=== PATIENT | female | born 1955 | race Caucasian/White ===

== ENCOUNTER 2018-01-21 19:40 | Emergency (ER) | payer BC ==
[~2018-01-21] VITALS: Ht 162.6 cm; Wt 113.4 kg
[~2018-01-21 19:40] MED LIST: Mobic15 MG PO; Naltrexone HCl50 MG PO; Norco 5-325 Ta1 EACH PO; OMEPRAZOLE CAP 20M; ZESTORETIC 20-251 EA PO
[2018-01-21 20:26] LABS: BASOPHILS ABSOLUTE AUTO 0.04 K/mm3 (0.00-0.23); BASOPHILS PERCENT AUTO 0 % (0-2); EOSINOPHILS ABSOLUTE AUTO 0.23 K/mm3 (0.00-0.68); EOSINOPHILS PERCENT AUTO 3 % (0-6); Hematocrit 39.5 % (33.0-51.0); Hemoglobin 12.7 g/dL (11.5-16.0); IMMATURE GRAN ABSOLUTE AUTO 0.02 K/mm3 (0.00-0.10); IMMATURE GRAN PERCENT AUTO 0 % (0-1); LYMPHOCYTES ABSOLUTE AUTO 1.37 K/mm3 (0.84-5.20); LYMPHOCYTES PERCENT AUTO 15 % (21-46); MONOCYTES ABSOLUTE AUTO 0.72 K/mm3 (0.16-1.47); MONOCYTES PERCENT AUTO 8 % (4-13); Mean Corpuscular HGB 30.6 pg (26.0-34.0); Mean Corpuscular HGB Conc 32.2 g/dL (31.5-36.5); Mean Corpuscular Volume 95 fL (80-100); Mean Platelet Volume 9.6 fL (9.1-12.4); NEUTROPHILS ABSOLUTE AUTO 6.76 K/mm3 (1.96-9.15); NEUTROPHILS PERCENT AUTO 74 % (41-73); Platelet Count 289 K/mm3 (150-400); RDW Coefficient Variation 12.9 % (11.7-14.2); RDW Standard Deviation 45.1 fL (35.1-46.3); Red Blood Cell Count 4.15 M/mm3 (3.80-5.20); White Blood Cell Count 9.14 K/mm3 (4.00-11.30)
[2018-01-21 20:47] LABS: Alanine Aminotransfer (ALT/SGP 27 U/L (12-78); Albumin, Blood 3.5 g/dL (3.4-5.0); Alk Phos 80 U/L (50-136); Anion Gap 8 mmol/L (6-16); Aspartate Aminotrans (AST/SGOT 16 U/L (12-37); Bilirubin, Total 0.2 mg/dL (0.1-1.0); Blood Urea Nitrogen 23 mg/dL (8-24); Bun/Creatinine Ratio 26.7 (12.0-20.0); CO2, Blood 28 mmol/L (21-32); Calcium, Blood 8.4 mg/dL (8.5-10.1); Chloride, Blood 105 mmol/L (98-108); Creatinine, Blood 0.86 mg/dL (0.40-1.00); Globulin, Blood 3.5 g/dL (2.2-4.0); Glomerular Filtration Rate >60 (60-); Glucose, Blood 117 mg/dL (70-99); Potassium, Blood 3.8 mmol/L (3.5-5.5); Sodium, Blood 141 mmol/L (136-145); Troponin I <0.015 ng/mL (0.000-0.040)
[2018-01-21] MEDS ORDERED: Zofran4 MG PO (21:41)
[2018-01-21] MEDS ORDERED: KETO10 PO (21:41)
[2018-01-21] MEDS ORDERED: Cyclobenzaprine5 MG PO (21:41)
== END 2018-01-21 22:10 | disposition home or self-care (01) ==
LOC: ER 19:40
PROVIDERS: Physician Assistant
DX: S29.012A Strain of muscle and tendon of back wall of thorax, initial encounter (principal); K80.20 Calculus of gallbladder without cholecystitis without obstruction; I10 Essential (primary) hypertension; Z87.891 Personal history of nicotine dependence; Z79.899 Other long term (current) drug therapy; X50.0XXA Overexertion from strenuous movement or load, initial encounter
CPT/HCPCS: 36415; 76705; 80053; 83690; 84484; 85025; 93005; 93010; 96374; 96375; 99284-25; J1170; J2405

== ENCOUNTER 2019-02-28 11:53 | Day surgery (SDC) | payer BC, OTHER ==
[~2019-02-28] VITALS: Ht 162.6 cm; Wt 109.2 kg
[~2019-02-28 11:53] MED LIST changes: +ALBU90OI6 INH; +ASPI81CH PO; +AZO CRANBERRY250 MG PO; +CELE100 PO; +CETI5 PO; +CINNAMON PO; +Cyclobenzaprine5 MG PO; +Flonase 0.05% N16 GM; +GINGER ROOT1 GM PO; +HYDCHL25 PO; +Hair, Skin & N1 EACH PO; +KETO10 PO; +LISI20 PO; +MELO7.5 PO; +Omega 3 1,0001 EACH PO; +Omeprazole20 M1 PO; +TURMERIC500 M2 PO; +Zofran4 MG PO; +[UNRECOGNIZED DRUG - OTHER] PO; +[UNRECOGNIZED DRUG - OTHER] PO
--- NOTE | 2019-02-28 12:29 | NUR ---
History, Chart, Medications and Allergies reviewed before start of procedure. Patient confirms NPO status and agrees with scheduled surgery. Lungs clear T/O to Auscultation. Patient reports completing Chlorhexadine shower X2 prior to admission to hospital. Pre-Op teaching done. Pt verbalizes understanding. NO JEWELRY, CONTACTS, DENTURES AT ADMIT. GLASSES WILL GO TO PACU.
--- NOTE | 2019-02-28 13:04 | NUR ---
PATIENT UP FOR UNMEASURED VOID
--- NOTE | 2019-02-28 13:04 | NUR ---
SPINDLE TESTER REPORT COMPLETED AT BEDSIDE WITH Farhana RUIZ RN.
--- NOTE | 2019-02-28 17:44 | NUR ---
SUMMARY DENIES ANY PAIN, ABLE TO MOVE FEET MORE, REPORTS HAVING MORE SENSATION ON BLE'S, EATING DINNER, TOLERATING WELL, DSG C/D/I, NO ACUTE CHANGES THIS SHIFT.
[2019-03-01 04:00] LABS: BASOPHILS ABSOLUTE AUTO 0.01 K/mm3 (0.00-0.23); BASOPHILS PERCENT AUTO 0 % (0-2); EOSINOPHILS PERCENT AUTO 0 % (0-6); Hematocrit 35.4 % (33.0-51.0); Hemoglobin 11.6 g/dL (11.5-16.0); IMMATURE GRAN ABSOLUTE AUTO 0.01 K/mm3 (0.00-0.10); IMMATURE GRAN PERCENT AUTO 0 % (0-1); LYMPHOCYTES ABSOLUTE AUTO 0.58 K/mm3 (0.84-5.20); LYMPHOCYTES PERCENT AUTO 6 % (21-46); MONOCYTES ABSOLUTE AUTO 0.62 K/mm3 (0.16-1.47); MONOCYTES PERCENT AUTO 7 % (4-13); Mean Corpuscular HGB 30.9 pg (26.0-34.0); Mean Corpuscular HGB Conc 32.8 g/dL (31.5-36.5); Mean Corpuscular Volume 94 fL (80-100); NEUTROPHILS ABSOLUTE AUTO 8.07 K/mm3 (1.96-9.15); NEUTROPHILS PERCENT AUTO 87 % (41-73); Platelet Count 220 K/mm3 (150-400); RDW Coefficient Variation 12.9 % (11.7-14.2); RDW Standard Deviation 44.2 fL (35.1-46.3); Red Blood Cell Count 3.76 M/mm3 (3.80-5.20); White Blood Cell Count 9.29 K/mm3 (4.00-11.30)
[2019-03-01 04:22] LABS: Anion Gap 7 mmol/L (6-16); Blood Urea Nitrogen 14 mg/dL (8-24); Bun/Creatinine Ratio 18.4 (12.0-20.0); CO2, Blood 25 mmol/L (21-32); Calcium, Blood 8.5 mg/dL (8.5-10.1); Chloride, Blood 108 mmol/L (98-108); Creatinine, Blood 0.76 mg/dL (0.40-1.00); Glomerular Filtration Rate >60 (60-); Glucose, Blood 111 mg/dL (70-99); Magnesium, Blood 1.9 mg/dL (1.6-2.4); Potassium, Blood 4.3 mmol/L (3.5-5.5); Sodium, Blood 140 mmol/L (136-145)
--- NOTE | 2019-03-01 07:21 | NUR ---
SUMMARY PT TOLERATING PO. VOIDING. PAIN REPORTED WELL CONTROLLED. CSM INTACT TO EXT.
[2019-03-01] MEDS ORDERED: HYDR1TAB94 PO (08:53)
[2019-03-01] MEDS ORDERED: ASPI81CH PO (08:53)
--- NOTE | 2019-03-01 10:42 | NUR ---
03/01/19 1042 Yaneth Arzola VERIFICATIONS: EDIT CHART.
--- NOTE | 2019-03-01 14:25 | NUR ---
DISCHARGE: PACKET PRINTED AND PT EDUCATED. ALSO IN ROOM WHEN PT EDUCATED. PT SENT WITH SCRIPT FOR NARCO AND AQUACEL DRESSINGS. PT VERBALIZED UNDERSTANDING, LEFT UNIT WITH MARTELL DAVIES VIA WHEELCHAIR.
== END 2019-03-01 14:20 | disposition home or self-care (01) ==
LOC: ORSCMMR 11:53 → ORD 13:30 → SURS 16:29 → ORSCMMR 03-01 14:20
PROVIDERS: Orthopaedic Surgery
PROC: 0SRD0J9 Replacement of Left Knee Joint with Synthetic Substitute, Cemented, Open Approach (ICD-10-PCS; principal; 2019-02-28 13:30)
DX: M17.12 Unilateral primary osteoarthritis, left knee (principal); I10 Essential (primary) hypertension; J45.909 Unspecified asthma, uncomplicated; E66.01 Morbid (severe) obesity due to excess calories; Z68.41 Body mass index [BMI] 40.0-44.9, adult; K21.9 Gastro-esophageal reflux disease without esophagitis; Z79.899 Other long term (current) drug therapy
CPT/HCPCS: 36415; 73560-LT; 80048; 83735; 85025; 88300; 97110; 97116; 97162; C1713; C1776; J0171; J0690; J0735; J1100; J1885; J2250; J2370; J2405; J2704; J2795; J3010; J7120

== ENCOUNTER 2019-10-08 16:39 | Emergency (ER) | payer BC, MEDICARE ==
[~2019-10-08] VITALS: Ht 157.5 cm; Wt 124.7 kg
[~2019-10-08 16:39] MED LIST changes: +HYDR1TAB94 PO
[2019-10-08] MEDS ORDERED: Norco 5-325 Ta1 EACH PO ×3 (17:59→18:24)
== END 2019-10-08 18:50 | disposition home or self-care (01) ==
LOC: ER 16:39
DX: S93.401A Sprain of unspecified ligament of right ankle, initial encounter (principal); S80.02XA Contusion of left knee, initial encounter; Z88.0 Allergy status to penicillin; Z88.2 Allergy status to sulfonamides; Z88.1 Allergy status to other antibiotic agents; Z79.82 Long term (current) use of aspirin; Z79.899 Other long term (current) drug therapy; I10 Essential (primary) hypertension; Z87.81 Personal history of (healed) traumatic fracture; Z87.891 Personal history of nicotine dependence; W18.30XA Fall on same level, unspecified, initial encounter
CPT/HCPCS: 73562-LT; 73590; 73610; 99283-25; A9270-GY

== ENCOUNTER 2019-12-28 09:08 | Day surgery (SDC) | payer MEDICARE, BC ==
[~2019-12-28] VITALS: Ht 162.6 cm; Wt 118.3 kg
[~2019-12-28 09:08] MED LIST changes: +CELE200; +FLUT.05NI; +PREG25; +ZYRTEC10 M2
--- NOTE | 2019-12-28 12:54 | NUR ---
12/28/19 1254 Radha Aviles PT. VERBALIZES ABD. FEELS LIKE SHE HAS EATEN POT STICKERS WITH CABBAGE IN THEM. PT. VERBALIZES FEELS LIKE BLOATING. PT. INSTRUCTED THAT EVENTUALLY THE AIR WILL ABSORB OR JUST PASS OUT AIR IF FELT THE NEED.
== END 2019-12-28 12:33 | disposition home or self-care (01) ==
LOC: ORSCSDS 09:08
PROVIDERS: Internal Medicine Gastroenterology
PROC: 0DBN8ZX Excision of Sigmoid Colon, Via Natural or Artificial Opening Endoscopic, Diagnostic (ICD-10-PCS; principal; 2019-12-28 11:15)
DX: Z12.11 Encounter for screening for malignant neoplasm of colon (principal); Z86.010 Personal history of colon polyps; K63.5 Polyp of colon; K64.8 Other hemorrhoids; K57.30 Diverticulosis of large intestine without perforation or abscess without bleeding; I10 Essential (primary) hypertension; Z79.899 Other long term (current) drug therapy; E66.01 Morbid (severe) obesity due to excess calories; Z68.41 Body mass index [BMI] 40.0-44.9, adult
CPT/HCPCS: J2704; J7120

== ENCOUNTER 2022-08-23 14:33 | Emergency (ER) | payer MEDICARE, BC ==
[~2022-08-23] VITALS: Ht 162.6 cm; Wt 117.9 kg
[2022-08-23 15:00] LABS: BASOPHILS ABSOLUTE AUTO 0.03 K/mm3 (0.00-0.23); BASOPHILS PERCENT AUTO 1 % (0-2); EOSINOPHILS ABSOLUTE AUTO 0.11 K/mm3 (0.00-0.68); EOSINOPHILS PERCENT AUTO 2 % (0-6); Hematocrit 37.8 % (33.0-51.0); Hemoglobin 12.6 g/dL (11.5-16.0); IMMATURE GRAN ABSOLUTE AUTO 0.03 K/mm3 (0.00-0.10); IMMATURE GRAN PERCENT AUTO 1 % (0-1); LYMPHOCYTES ABSOLUTE AUTO 0.88 K/mm3 (0.84-5.20); LYMPHOCYTES PERCENT AUTO 19 % (21-46); MONOCYTES ABSOLUTE AUTO 0.42 K/mm3 (0.16-1.47); MONOCYTES PERCENT AUTO 9 % (4-13); Mean Corpuscular HGB 30.4 pg (26.0-34.0); Mean Corpuscular HGB Conc 33.3 g/dL (31.5-36.5); Mean Corpuscular Volume 91 fL (80-100); Mean Platelet Volume 9.4 fL (9.1-12.4); NEUTROPHILS ABSOLUTE AUTO 3.27 K/mm3 (1.96-9.15); NEUTROPHILS PERCENT AUTO 69 % (41-73); Platelet Count 259 K/mm3 (150-400); RDW Coefficient Variation 13.2 % (11.7-14.2); RDW Standard Deviation 43.4 fL (35.1-46.3); Red Blood Cell Count 4.14 M/mm3 (3.80-5.20); White Blood Cell Count 4.74 K/mm3 (4.00-11.30)
[2022-08-23 15:18] LABS: Source, Urine Clean Catch
[2022-08-23 15:22] LABS: Albumin, Blood 3.5 g/dL (3.4-5.0); Bilirubin, Total 0.4 mg/dL (0.1-1.0); Bun/Creatinine Ratio 18.3 (12.0-20.0); Calcium, Blood 9.1 mg/dL (8.5-10.1); Creatinine, Blood 0.77 mg/dL (0.40-1.00); Globulin, Blood 3.4 g/dL (2.2-4.0); Potassium, Blood 3.9 mmol/L (3.5-5.5); Total Protein, Blood 6.9 g/dL (6.4-8.2)
[2022-08-23 15:25] LABS: Appearance, Urine Clear (Clear); Bilirubin, Urine Neg (Neg); Blood, Urine Neg (Neg); Color, Urine Yellow (P-Yellow); Glucose Qualitative, Urine Neg (Neg); Ketones, Urine Neg (Neg); Leukocyte Esterase, Urine 1+ (Neg); Nitrite, Urine Neg (Neg); Protein, Urine Neg (Neg); Urobilinogen, Urine NORM (Normal)
[2022-08-23 15:43] LABS: Bacteria Mod /hpf; Red Blood Cells, Urine 0-2 /hpf (0-2); Squamous Epithelial Cells Rare /hpf (Few)
[2022-08-23] MEDS ORDERED: LOSARTAN POTAS100 M1 PO (16:45)
[2022-08-23] MEDS ORDERED: OMEPRAZOL RX 20MG CA PO (16:45)
[2022-08-23] MEDS ORDERED: ZESTRIL40 M1 PO (16:46)
[2022-08-23] MEDS ORDERED: BUTALB-ACETAMI1 EAC5 PO (16:46)
[2022-08-23] MEDS ORDERED: CYCL10 PO (16:46)
[2022-08-23] MEDS ORDERED: BISA5EC PO (17:02)
[2022-08-23] MEDS ORDERED: MIRALAX17 GM PO (17:02)
[2022-08-23 17:08] VITALS: BP 169/94
== END 2022-08-23 17:23 | disposition home or self-care (01) ==
LOC: ER 14:33
PROVIDERS: Emergency Medicine
DX: K59.00 Constipation, unspecified (principal); I10 Essential (primary) hypertension; Z88.0 Allergy status to penicillin; Z88.2 Allergy status to sulfonamides; Z88.1 Allergy status to other antibiotic agents; Z87.891 Personal history of nicotine dependence
CPT/HCPCS: 36415; 74177; 80053; 81001; 83690; 85025; 87086; 99284-25; A9270; Q9967

== ENCOUNTER → 2022-09-02 | Outpatient (CLI) | payer MEDICARE, BC ==
[~2022-09-02] MED LIST changes: +BISA5EC PO; +BUTALB-ACETAMI1 EAC5 PO; +CYCL10 PO; +LOSARTAN POTAS100 M1 PO; +MIRALAX17 GM PO; +OMEPRAZOL RX 20MG CA PO; +ZESTRIL40 M1 PO
== END | disposition home or self-care (01) ==
LOC: LAB 17:00 → LAB SHORT 17:00
DX: R30.0 Dysuria (principal)
CPT/HCPCS: 87077; 87086; 87186

== ENCOUNTER → 2022-12-25 | Outpatient (CLI) | payer MEDICARE, BC ==
[2022-12-25 13:57] LABS: Stool Occult Bld Immuno 1 Negative (NEGATIVE)
== END | disposition home or self-care (01) ==
LOC: LAB SHORT 08:25 → LAB 08:25
PROVIDERS: Physician Assistant
DX: Z12.11 Encounter for screening for malignant neoplasm of colon (principal)
CPT/HCPCS: G0328

== ENCOUNTER 2023-05-28 09:54 | Inpatient (IN) | payer MEDICARE, BC ==
[2023-05-28] VITALS (21 sets, daily range): BP systolic 116–168; BP diastolic 70–91
[~2023-05-28] VITALS: Ht 162.6 cm; Wt 94.7 kg
[2023-05-28 11:55] LABS: Source, Urine Straight Cath
[2023-05-28 12:02] LABS: Base Excess Venous 3.8 mmol/L; Bicarbonate Venous 26.6 mmol/L (24.0-30.0); pH Blood Venous 7.36 (7.34-7.37)
[2023-05-28 12:25] LABS: BASOPHILS ABSOLUTE AUTO 0.03 K/mm3 (0.00-0.23); BASOPHILS PERCENT AUTO 0 % (0-2); EOSINOPHILS ABSOLUTE AUTO 0.03 K/mm3 (0.00-0.68); EOSINOPHILS PERCENT AUTO 0 % (0-6); Hematocrit 45.3 % (33.0-51.0); Hemoglobin 15.2 g/dL (11.5-16.0); IMMATURE GRAN ABSOLUTE AUTO 0.08 K/mm3 (0.00-0.10); IMMATURE GRAN PERCENT AUTO 1 % (0-1); LYMPHOCYTES ABSOLUTE AUTO 1.05 K/mm3 (0.84-5.20); LYMPHOCYTES PERCENT AUTO 12 % (21-46); MONOCYTES ABSOLUTE AUTO 0.59 K/mm3 (0.16-1.47); MONOCYTES PERCENT AUTO 7 % (4-13); Mean Corpuscular HGB 30.1 pg (26.0-34.0); Mean Corpuscular HGB Conc 33.6 g/dL (31.5-36.5); Mean Corpuscular Volume 90 fL (80-100); Mean Platelet Volume 9.6 fL (9.1-12.4); NEUTROPHILS ABSOLUTE AUTO 7.35 K/mm3 (1.96-9.15); NEUTROPHILS PERCENT AUTO 81 % (41-73); Platelet Count 539 K/mm3 (150-400); RDW Standard Deviation 42.7 fL (35.1-46.3); Red Blood Cell Count 5.05 M/mm3 (3.80-5.20); White Blood Cell Count 9.13 K/mm3 (4.00-11.30)
[2023-05-28] MEDS ORDERED: HYDROCODONE-AC1 EA19 PO (12:41)
[2023-05-28] MEDS ORDERED: OXYC5 PO (12:43)
[2023-05-28] MEDS ORDERED: DOCU100 PO (12:43)
[2023-05-28] MEDS ORDERED: ALBU90OI INH (12:44)
[2023-05-28] MEDS ORDERED: ACET500 PO (12:44)
[2023-05-28] MEDS ORDERED: THERA-D2000 UNIT PO (12:45)
[2023-05-28] MEDS ORDERED: Aspir 8181 MG PO (12:45)
[2023-05-28] MEDS ORDERED: ZYRTEC10 M2 PO (12:45)
[2023-05-28] MEDS ORDERED: EPIPEN0.3 MG/0.3 IM (12:46)
[2023-05-28] MEDS ORDERED: HYDCHL25 PO (12:46)
[2023-05-28] MEDS ORDERED: ONDA4ODT MM (12:47)
[2023-05-28] MEDS ORDERED: MULVITA PO (12:47)
[2023-05-28] MEDS ORDERED: SERT100 PO (12:48)
[2023-05-28] MEDS ORDERED: PROM25 PO (12:48)
[2023-05-28] MEDS ORDERED: TRAZ50 PO (12:49)
[2023-05-28 12:52] LABS: Alanine Aminotransfer (ALT/SGP 93 U/L (12-78); Albumin, Blood 3.6 g/dL (3.4-5.0); Albumin/Globulin Ratio 0.8 (0.8-1.8); Alk Phos 116 U/L (50-136); Anion Gap 6 mmol/L (6-16); Aspartate Aminotrans (AST/SGOT 36 U/L (12-37); Bilirubin, Direct <0.1 mg/dL (0.0-0.3); Bilirubin, Indirect Unable to Calculate mg/dL (0.1-0.7); Bilirubin, Total 0.4 mg/dL (0.1-1.0); Blood Urea Nitrogen 13 mg/dL (8-24); Bun/Creatinine Ratio 24.7 (12.0-20.0); CO2, Blood 29 mmol/L (21-32); Calcium, Blood 10.1 mg/dL (8.5-10.1); Chloride, Blood 101 mmol/L (98-108); Creatinine, Blood 0.53 mg/dL (0.40-1.00); Globulin, Blood 4.6 g/dL (2.2-4.0); Glomerular Filtration Rate 101 (60-); Glucose, Blood 156 mg/dL (70-99); Potassium, Blood 3.7 mmol/L (3.5-5.5); Sodium, Blood 136 mmol/L (136-145); Total Protein, Blood 8.2 g/dL (6.4-8.2)
[2023-05-28 12:55] LABS: Influenza A, PCR NEGATIVE (NEGATIVE); Influenza B, PCR NEGATIVE (NEGATIVE); Resp Syncytial Virus, PCR NEGATIVE (NEGATIVE); SARS-Cov-2 (COVID-19) PCR, MMC NEGATIVE (NEGATIVE)
[2023-05-28 13:30] LABS: Appearance, Urine Clear (Clear); Bilirubin, Urine Neg (Neg); Blood, Urine Neg (Neg); Color, Urine Yellow (P-Yellow); Glucose Qualitative, Urine Neg (Neg); Ketones, Urine Neg (Neg); Leukocyte Esterase, Urine Neg (Neg); Nitrite, Urine Neg (Neg); Protein, Urine 2+ (Neg); Urobilinogen, Urine NORM (Normal)
[2023-05-28 13:49] LABS: Bacteria Many /hpf; Mucus Light (0-Heavy); Red Blood Cells, Urine 0-2 /hpf (0-2); Squamous Epithelial Cells Mod /hpf (Few); White Blood Cells, Urine 0-2 /hpf (0-5)
--- NOTE | 2023-05-28 19:00 | NUR ---
ASSUMED CARE Assumed care of patient with AMOR Roy, report received.
[2023-05-29] VITALS (91 sets, daily range): BP systolic 125–185; BP diastolic 69–110
[2023-05-29 04:40] LABS: Albumin, Blood 2.9 g/dL (3.4-5.0); Albumin/Globulin Ratio 0.9 (0.8-1.8); Bilirubin, Total 0.4 mg/dL (0.1-1.0); Bun/Creatinine Ratio 24.4 (12.0-20.0); Calcium, Blood 8.9 mg/dL (8.5-10.1); Creatinine, Blood 0.53 mg/dL (0.40-1.00); Globulin, Blood 3.4 g/dL (2.2-4.0); Potassium, Blood 3.3 mmol/L (3.5-5.5); Total Protein, Blood 6.3 g/dL (6.4-8.2)
--- NOTE | 2023-05-29 06:22 | NUR ---
SHIFT SUMMARY BP REMAINED STABLE EARLIER, TITRATED OFF NICARDIPINE HOWEVER EVEN WITH PAIN CONTROL, BP INCREASED TO MAP > 110 SUSTAINED, RESTARTED AT 5 (SEE MAR) AND SINCE HAS REMAINED WITH MAP GOAL 100-110. UP TO COMMODE EARLIER TO VOID, MINIMAL OUTPUT FROM COLOSTOMY AND PAIN STABLE AT 7/10, HOWEVER INCREASED ABDOMINAL PAIN EPISODES ON SHIFT IN ADDITION TO HEADACHE WITH INTERMITTENT CONFUSION NOTED, DISCUSSED WITH EARLIER. LIGHTS OFF FOR COMFORT, CALL LIGHT IN REACH, PATIENT APPEARS TO CALL APPROPRIATELY AND ABLE TO MAKE NEEDS KNOWN. NEURO CHECK NEGATIVE EARLIER. REPORT PENDING TO ONCOMING RN. .
--- NOTE | 2023-05-29 07:35 | NUR ---
ASSUMED CARE OF PT AT 0700 BEDSIDE REPORT RECEIVED FROM SANJEEV RN AND AMOR ESPINOZA. PT IS A/O X 1-2, AWAKE CURRENTLY. C/O HEADACHE AND STATES FENTANYL PRN HAS BEEN HELPING. SR, BP MAP GOAL 100-110, MAP CURRENTLY 104, NICARDIPINE DRIP AT 5. O2 SAT 97% ON ROOM AIR. HAS COLOSTOMY WITH MINIMAL LIQUID OUTPUT. REGULAR DIET ORDERED BUT APPETITE POOR. DENIES ANY NAUSEA. OOB X1 TO VOID WITH BLADDER SCAN SHOWING PVR OF 200. PT DENIES URGE TO URINATE AT THIS TIME. NO SKIN CHANGES. PIV X2, NS @ 125 AND NICARDIPINE INFUSING. NO FAMILY AT BEDSIDE, AVAILABLE IF NEEDED. POC ONGOING.
[2023-05-29] MEDS ORDERED: METO25 PO (16:55)
[2023-05-29] MEDS ORDERED: FAMO20 PO (16:56)
--- NOTE | 2023-05-29 17:43 | NUR ---
DAY SHIFT SUMMARY PT IS A/O X 3-4. REMEMBERS BEING AT [facility] AND HAVING SURGERY, STILL DOES NOT REMEMBER TIME AT HOME BEFORE BEING ADMITTED TO ICU YESTERDAY. ABLE TO MAKE NEEDS KNOWN, MOVES ALL EXTREMETIES, FOLLOWS COMMANDS. PT AT TIMES STATES SHE IS NOT IN PAIN ALTHOUGH IS MOANING AND MOVING HEAD SIDE TO SIDE. UPON FURTHER INVESTIGATION AND QUESTIONING, PT WILL ADMIT THAT SHE IS IN FACT IN PAIN. PRIMARILY HEADACHES AND ABDOMINAL PAIN TODAY. MEDICATED WITH FENTANYL WITH GOOD RELIEF. SR, MINIMAL ECTOPY. BP REMAINS CONTROLLED WITH NICARDIPINE AT 5 TO KEEP MAP 100-110. O2 SAT 93-96% ON ROOM AIR, LUNGS CTA X ALL LANDA. ILLEOSTOMY TO RIGHT UPPER QUADRANT, DRAINING DARK GREEN LIQUID OUTPUT. AMOUNT UNMEASURED DUE TO BAG LEAKING ONTO BED. 1 EPISODE OF NAUSEA, TREATED SUCESSFULLY WITH ZOFRAN. PT IS VERY SENSITIVE TO FOOD SMELLS AT THIS TIME. REQUESTS WE TELL HER WHAT IS BEING SERVED BEFORE BRINGING IT INTO HER ROOM TO HELP WITH DECREASING NAUSEA. OOB TO VOID SEVERAL TIMES WITH 1 PERSON ASSIST. STABLE ON FEET. SKIN UNCHANGED, MIDLINE ABD INCISION AND NEW STOMA (BEEFY RED). PIV X2, ASSESSED EVERY 2 HOURS DUE TO NICARDIPINE INFUSING. 2 DAUGHTERS AND AT BEDSIDE. ALL VERY SUPPORTIVE OF PT. PT AND VISITORS EDUCATED AND UPDATED, ALL QUESTIONS ANSWERED. POC ONGOING.
--- NOTE | 2023-05-29 19:45 | NUR ---
INITIAL NOTE REPORT RECEIVED, PATIENT C/O SEVERE PAIN STILL UPON ROOM ENTRY, WAS ABLE TO AMBULATE TO BEDSIDE COMMODE AND VOIDED ABOUT 500 ML YELLOW CLOUDY URINE. NOTED SOMETHING THAT APPEARED LIKE SEEDS IN URINE ABOUT FIVE TOTAL. NO BOWEL MOVEMENT, ACCIDENT EARLIER WITH COLOSTOMY FROM REPORT, OUTPUT MINOR FROM COLOSTOMY AT PRESENT. VS REMAIN STABLE ON NICARDIPINE AT 5, WITH MAP 100'S, MOST RECENT 102. MONITORING. PATIENT ALERT/ORIENTED TODAY AND ABLE TO ANSWER QUESTIONS OVERALL WITH SOME ANSWERS TO QUESTIONS A BIT FUZZY BUT ADMITS THIS ABDOMINAL PAIN AND HEADACHE HAVE BEEN SINCE SURGICAL PROCEDURE ON ABDOMEN. BACK PAIN IS NOT NEW BUT DUE TO BEING BED BOUND APPEARS TO BE WORSE. CALL IN PROGRESS TO PHYSICIAN.
[2023-05-30] VITALS (82 sets, daily range): BP systolic 106–170; BP diastolic 66–129
[2023-05-30 03:55] LABS: BASOPHILS ABSOLUTE AUTO 0.03 K/mm3 (0.00-0.23); BASOPHILS PERCENT AUTO 0 % (0-2); EOSINOPHILS ABSOLUTE AUTO 0.21 K/mm3 (0.00-0.68); EOSINOPHILS PERCENT AUTO 3 % (0-6); Hematocrit 35.8 % (33.0-51.0); Hemoglobin 12.1 g/dL (11.5-16.0); IMMATURE GRAN ABSOLUTE AUTO 0.06 K/mm3 (0.00-0.10); IMMATURE GRAN PERCENT AUTO 1 % (0-1); LYMPHOCYTES ABSOLUTE AUTO 1.29 K/mm3 (0.84-5.20); LYMPHOCYTES PERCENT AUTO 18 % (21-46); MONOCYTES ABSOLUTE AUTO 0.79 K/mm3 (0.16-1.47); MONOCYTES PERCENT AUTO 11 % (4-13); Mean Corpuscular HGB 30.6 pg (26.0-34.0); Mean Corpuscular HGB Conc 33.8 g/dL (31.5-36.5); Mean Corpuscular Volume 90 fL (80-100); Mean Platelet Volume 9.1 fL (9.1-12.4); NEUTROPHILS ABSOLUTE AUTO 4.99 K/mm3 (1.96-9.15); NEUTROPHILS PERCENT AUTO 68 % (41-73); Platelet Count 389 K/mm3 (150-400); RDW Standard Deviation 42.7 fL (35.1-46.3); Red Blood Cell Count 3.96 M/mm3 (3.80-5.20); White Blood Cell Count 7.37 K/mm3 (4.00-11.30)
--- NOTE | 2023-05-30 03:55 | NUR ---
SHIFT SUMMARY DURING SHIFT PATIENT PAIN TREATED WITH ONE DOSE AND FENTANYL INCREASED TO Q2 PRN, PATIENT APPEARED TO NEED THIS DOSE FREQUENTLY AND NEUROLOGICALLY REMAINED INCONSISTENT WITH MOOD/EMOTIONS, UP TO VOID SEVERAL TIMES ON SHIFT WITH GOOD OUTPUT. CONCERN FOR IV INFILTRATION DURING SHIFT, HOWEVER NOTED GOOD BLOOD RETURN AND AREA CONCERNING APPEARED TO BE PATIENT ANATOMY RATHER THAN INFILTRATION, CONFIRMED WITH AMOR ESPINOZA. ROTATED SITE OF NICARDIPINE, BOTH IV'S CONTINUE TO INFUSE PRESENTLY WITHOUT ISSUE. VS STABLE OTHERWISE, MAP WITHIN GOAL AND MONITORING. CALL LIGHT IN REACH, NO ACUTE CONCERNS OTHERWISE.
[2023-05-30 04:14] LABS: Albumin, Blood 2.8 g/dL (3.4-5.0); Albumin/Globulin Ratio 0.8 (0.8-1.8); Bilirubin, Total 0.3 mg/dL (0.1-1.0); Bun/Creatinine Ratio 15.4 (12.0-20.0); Calcium, Blood 8.3 mg/dL (8.5-10.1); Creatinine, Blood 0.52 mg/dL (0.40-1.00); Globulin, Blood 3.4 g/dL (2.2-4.0); Potassium, Blood 3.1 mmol/L (3.5-5.5); Total Protein, Blood 6.2 g/dL (6.4-8.2)
--- NOTE | 2023-05-30 08:37 | NUR ---
ASSUMED CARE OF PT AT 0700 BEDSIDE REPORT RECEIVED FROM AMOR PACE AND AMOR ESPINOZA. PT IS AWAKE AND IN BED. HAS BEEN RESTING WELL PER REPORT. MEDICATED FOR PAIN A FEW TIMES WITH FENTANYL WITH GOOD TEMPORARY RELIEF. HEADACHES HAVE BEEN PRIMARY PAIN COMPLAINT. SR, BP MAP GOAL 100-110, NICARDIPINE TITRATED TO EFFECT. ON ROOM AIR, O2 SATS 95%, LUNGS CTA. DENIES NAUSEA THIS AM, ABLE TO EAT 1/2 BOWL OF OATMEAL. ILEOSTOMY TO RIGHT UPPER ABD, STOMA BEEFY RED, OUTPUT DARK GREEN AND LIQUID. VOIDS USING BSC WITH 1 PERSON ASSIST TO HELP NAVIGATE LINES/TUBES. STEADY ON FEET. SKIN LARGELY INTACT, MIDLINE ABD INCISION C/D/I. PIV X2 TO RIGHT AC AND RIGHT HAND. BOTH INFUSING, BOTH WITHDRAW BLOOD WELL. AT BEDSIDE THIS AM. PT OOB TO CHAIR FOR BREAKFAST. POC ONGOING.
[2023-05-30 10:26] LABS: Magnesium, Blood 1.9 mg/dL (1.6-2.4)
--- NOTE | 2023-05-30 18:41 | NUR ---
DAY SHIFT SUMMARY PT IS A/O X 4, DENIES PAIN, NO PRN MEDICATION NEEDED THIS SHIFT AT ALL. PT HAS BEEN HEADACHE FREE. SR, TITRATED NICARDIPINE TO OFF, DR. TAMAYO ORDERED HOME ANTIHYPERTENSIVES TO BE RESTARTED. CONTINUES TO BE ON ROOM AIR, LUNGS CTA. ILEOSTOMY TO RIGHT UPPER ABD, APPLIANCE CHANGED. HAS MUCOUS FROM RECTUM. OOB TO BSC TO VOID. SKIN WITH MIDLINE ABD INCISION, NO S/S INFECTION. PG PLACED TO LEFT UPPER ARM, PIV TO RIGHT HAND. LEFT AC PIV REMOVED DUE TO PAIN. FAMILY AT BEDSIDE, UPDATED ON CONDITION, ALL QUESTIONS ANSWERED. PT STATUS CHANGE TO PCU. POC ONGOING.
--- NOTE | 2023-05-30 21:30 | NUR ---
INITIAL NOTE ASSESSMENT PERFORMED, NO ACUTE NEEDS NOTED, REPORT RECEIVED. DISCUSSED COZAAR WITH PATIENT AND SHE AGREED TO TRY SINCE ORDERED EVEN THOUGH PER PATIENT "IT WAS NOT EFFECTIVE SINCE I'VE BEEN TAKING IT". METOPROLOL AND HYDRALAZINE GIVEN, PENDING RESPONSE. BP REMAINS ELEVATED, OTHER VS STABLE. TRAZODONE ALSO GIVEN. CALLED LATER DUE TO COLOSTOMY BAG ISSUE, ALEXIS CHINCHILLA ASSISTED. RECENTLY CONCERNED WITH BACK PAIN, REPOSITIONED PATIENT, FENTANYL GIVEN EARLIER, REPOSITIONING APPEARED TO BE EFFECTIVE FOR NOW. CALL LIGHT IN REACH, DENIES NEEDS, GIVING SOME TIME FOR BP TO DECREASE BELOW 160 SYSTOLIC AND IF NOT WILL REACH OUT TO MD.
--- NOTE | 2023-05-30 23:30 | NUR ---
TRANSFER NOTE NO ACUTE CHANGES, PATIENT AWOKE AND UP TO RESTROOM, GIVEN REPORT EARLIER TO AMOR RODRIGUEZ. PATIENT TRANSFERRED TO NEW ROOM AT PRESENT TIME.
[2023-05-31] VITALS (7 sets, daily range): BP systolic 137–190; BP diastolic 85–116
--- NOTE | 2023-05-31 00:28 | NUR ---
INITIAL NOTE PATIENT ARRIVED INTUBATED, BP ON LOWER SIDE ON ARRIVAL AND PATIENT AWAKE, FIGHTING VENT, UNABLE TO GET TO FOLLOW COMMANDS, PUPILS EQUAL/REACTIVE, VS OTHERWISE STABLE, A/C PC ON 70% FIO2, P 24/PEEP 8, RATE 20. REMAINS RESTLESS, ATTEMPTED INCREASED SEDATION BUT DUE TO BP DROPPING, REDUCED. OTHER MEDICATIONS GIVEN TO ATTEMPT INCREASED SEDATION, LIGHTS OFF AND MINIMIZE NOISE. PRESENTLY NOREPI AT 8 MCG/KG/MIN, PROPOFOL AT 30 MCG/KG/MIN. RASS +1 TO -1. UPDATED FAMILY. BELONGINGS SENT HOME WITH FAMILY.
--- NOTE | 2023-05-31 01:39 | NUR ---
TRANSFER NOTE NO ACUTE CHANGES, PATIENT AWOKE AND UP TO RESTROOM, GIVEN REPORT EARLIER TO AMOR RODRIGUEZ. PATIENT TRANSFERRED TO NEW ROOM AT PRESENT TIME.
--- NOTE | 2023-05-31 04:21 | NUR ---
TRANSFER OF CARE THIS NURSE ASSUMED CARE OF PT AT 0010. PT IS A/OX4. HEART SOUNDS REGULAR. WANTS TO GO BACK TO SLEEP DUE TO HEADACHE.
--- NOTE | 2023-05-31 06:09 | NUR ---
SHIFT SUMMARY PT IS A/OX4. HEART SOUNDS REGULAR. LUNG SOUNDS CLEAR. PT C/O HEADACHE, MEDICATION PER EMAR. PT AWAOKE A COUPLE OURS LATER WHEN OSTOMY BAG LEAKED. PT BP WAS ELEVATED ON CHECK. MEDICATED PER EMAR. PT UPSET ABOUT OSTOMY AND DOESNT LIKE THE SMELL. PT DOESNT LIKE TO LOOK AT OSTOMY AND TURNS HEAD WHEN CARE IS PROVIDED. PT 1P SBA TO BSC. PT C/O ABD PAIN. STATES FEELS LIKE SHE NEEDS TO POOP.
--- NOTE | 2023-05-31 07:40 | NUR ---
ASSUMED CARE BEDSIDE REPORT RECIEVED. PT RESTING QUIETLY WITH LIGHTS OFF DURING REPORT. SHORTLY AFTER REPORT PT FOUND TO BE STANDING UP IN ROOM STARING AT CELING AND BED. PT STARTLED BY THIS RN ENTERING ROOM. PT UNABLE TO INITIALLY ANSWER ORIENTATION QUESTIONS, BUT STATES "THERE ARE SPIDERS COMING FROM THE CEILING." PT REFUSED TO GO BACK TO BED WITH CLEAN LINENS. PT SITTING UP IN CHAIR AT THIS TIME. REINFORCED CALL LIGHT USE. VSS. IV'S SALINE LOCKED. WILL CONTINUE TO MONITOR.
[2023-05-31 12:52] LABS: BASOPHILS ABSOLUTE AUTO 0.03 K/mm3 (0.00-0.23); BASOPHILS PERCENT AUTO 0 % (0-2); EOSINOPHILS PERCENT AUTO 1 % (0-6); Hematocrit 36.8 % (33.0-51.0); Hemoglobin 12.6 g/dL (11.5-16.0); IMMATURE GRAN ABSOLUTE AUTO 0.06 K/mm3 (0.00-0.10); IMMATURE GRAN PERCENT AUTO 1 % (0-1); LYMPHOCYTES ABSOLUTE AUTO 1.24 K/mm3 (0.84-5.20); LYMPHOCYTES PERCENT AUTO 13 % (21-46); MONOCYTES ABSOLUTE AUTO 0.79 K/mm3 (0.16-1.47); MONOCYTES PERCENT AUTO 8 % (4-13); Mean Corpuscular HGB 30.4 pg (26.0-34.0); Mean Corpuscular HGB Conc 34.2 g/dL (31.5-36.5); Mean Corpuscular Volume 89 fL (80-100); Mean Platelet Volume 9.1 fL (9.1-12.4); NEUTROPHILS ABSOLUTE AUTO 7.45 K/mm3 (1.96-9.15); NEUTROPHILS PERCENT AUTO 77 % (41-73); Platelet Count 528 K/mm3 (150-400); RDW Coefficient Variation 13.4 % (11.7-14.2); RDW Standard Deviation 43.4 fL (35.1-46.3); Red Blood Cell Count 4.14 M/mm3 (3.80-5.20); White Blood Cell Count 9.67 K/mm3 (4.00-11.30)
[2023-05-31 13:07] LABS: Bun/Creatinine Ratio 16.2 (12.0-20.0); Calcium, Blood 9.1 mg/dL (8.5-10.1); Creatinine, Blood 0.62 mg/dL (0.40-1.00); Potassium, Blood 3.4 mmol/L (3.5-5.5)
--- NOTE | 2023-05-31 16:40 | NUR ---
SHIFT SUMMARY PT HAS DONE WELL THIS SHIFT. PT HAS REMAINED AWAKE, ALERT, AND ORIENTED THROUGHOUT THE DAY. PT WITH BREIF EPISODE OF VISUAL HALLUCINATIONS THIS MORNING WHEN FIRST WAKING. PT ANSWERS QUESTIONS APPROPRIATELY AND FOLLOWS DIRECTIONS WELL. PT UP IN ROOM TO TOILET WITH STAND BY ASSISTANCE. VITAL SIGNS HAVE REMAINED STABLE, PT ON ROOM AIR. PG TO LUCIO SALINE LOCKED. PT TAKING PO INTAKE WELL. ILEOSTOMY REMAINS C/D/I WITH BILE/SOFT OUTPUT NOTED. PT SPOUSE AT BEDSIDE MOST OF THIS SHIFT. WILL CONTINUE TO MONITOR AND REPORT OFF TO ONCOMING RN.
--- NOTE | 2023-05-31 18:09 | NUR ---
TRANSFER TO 353. PT TRANSFERED TO ROOM 353 FROM ICU. PT ORIENTED TO ROOM. CALL LIGHT IN REACH. MEDICATED WITH HER SCHEDULED COZAR. PT PLEASANT & COOPERATIVE. WORRIED ABOUT HER DINNER TRAY. PT HAS HAD RECENT ILLIOSTOMY SURGERY AND HAS RESTRICTIVE DIET TO LOW FIBER, NO SEEDS, AND NO SKINS. MESSAGE LEFT WITH DIETARY OFFICE TO HELP FIGURE OUT WHAT SHE CAN EAT TOMORROW. FOR NOW PT IS EATING SNACKS OUT OF THE PANTRY. DAUGHTER AT BEDSIDE. DENIES OTHER NEEDS AT THIS TIME.
[2023-06-01 03:28] VITALS: BP 174/83
[2023-06-01 04:38] VITALS: BP 160/80
--- NOTE | 2023-06-01 05:43 | NUR ---
SHIFT SUMMARY PT ADMITTED DT CHEST PAIN. MEDICATED FOR HEADACHE X1. PT HAS POWERGLIDE IN LEFT UPPER ARM. PT SLEPT PEACEFULLY THROUGHOUT SHIFT.
[2023-06-01 08:10] VITALS: BP 174/96
[2023-06-01 12:13] LABS: BASOPHILS ABSOLUTE AUTO 0.03 K/mm3 (0.00-0.23); BASOPHILS PERCENT AUTO 0 % (0-2); EOSINOPHILS ABSOLUTE AUTO 0.07 K/mm3 (0.00-0.68); EOSINOPHILS PERCENT AUTO 1 % (0-6); Hematocrit 37.7 % (33.0-51.0); IMMATURE GRAN ABSOLUTE AUTO 0.04 K/mm3 (0.00-0.10); IMMATURE GRAN PERCENT AUTO 1 % (0-1); LYMPHOCYTES PERCENT AUTO 15 % (21-46); MONOCYTES ABSOLUTE AUTO 0.76 K/mm3 (0.16-1.47); MONOCYTES PERCENT AUTO 9 % (4-13); Mean Corpuscular HGB 30.7 pg (26.0-34.0); Mean Corpuscular HGB Conc 34.5 g/dL (31.5-36.5); Mean Corpuscular Volume 89 fL (80-100); Mean Platelet Volume 9.1 fL (9.1-12.4); NEUTROPHILS ABSOLUTE AUTO 6.38 K/mm3 (1.96-9.15); NEUTROPHILS PERCENT AUTO 74 % (41-73); Platelet Count 515 K/mm3 (150-400); RDW Coefficient Variation 13.4 % (11.7-14.2); RDW Standard Deviation 43.3 fL (35.1-46.3); Red Blood Cell Count 4.24 M/mm3 (3.80-5.20); White Blood Cell Count 8.58 K/mm3 (4.00-11.30)
[2023-06-01 12:34] LABS: Bun/Creatinine Ratio 14.7 (12.0-20.0); Calcium, Blood 9.5 mg/dL (8.5-10.1); Creatinine, Blood 0.54 mg/dL (0.40-1.00); Potassium, Blood 3.6 mmol/L (3.5-5.5)
[2023-06-01 15:36] VITALS: BP 172/97
--- NOTE | 2023-06-01 17:37 | NUR ---
PT IS A/OX4, PLEASANT AND COOPERATIVE, PT IS UP WITH MIN ASSIST TO THE BATHROOM. THE PT REPORTED H/A THIS AM AND WAS GIVEN TYLENOL AND A CUP OF COFFEE WHICH PER THE PT RESOLVED THE H/A. PT WAS EDUCATED ON CARE OF HER ILLEOSTOMY. THE ILLOSTMY APPLIANCE WAS CHANGED X 2 TODAY. PTS DAUGHTER WAS AT THE BEDSIDE FOR MOST OF THE DAY. CALL LIGHT IN REACH. BED IN THE LOW POSITION
[2023-06-01 17:46] VITALS: BP 146/76
[2023-06-01 19:50] VITALS: BP 150/92
[2023-06-02 02:42] VITALS: BP 151/72
--- NOTE | 2023-06-02 06:18 | NUR ---
SHIFT SUMMARY PT PLEASANT AND SMILING, SITTING UP IN BED AT SHIFT CHANGE. NO SIGNIFICANT CHANGES. DEALING WITH INSOMNIA THIS NOC SHIFT. PROVIDED WITH PRN MEDICATION PER EMAR. AFTER RECEIVING MEDS, PT ABLE TO SLEEP SOUNDLY THROUGH THE REST OF THE SHIFT.
[2023-06-02 07:02] LABS: Albumin/Globulin Ratio 0.9 (0.8-1.8); Bilirubin, Total 0.5 mg/dL (0.1-1.0); Bun/Creatinine Ratio 16.7 (12.0-20.0); Calcium, Blood 8.8 mg/dL (8.5-10.1); Creatinine, Blood 0.6 mg/dL (0.40-1.00); Globulin, Blood 3.5 g/dL (2.2-4.0); Potassium, Blood 3.9 mmol/L (3.5-5.5); Total Protein, Blood 6.5 g/dL (6.4-8.2)
[2023-06-02 07:10] VITALS: BP 156/96
[2023-06-02 07:15] LABS: BASOPHILS ABSOLUTE AUTO 0.04 K/mm3 (0.00-0.23); BASOPHILS PERCENT AUTO 1 % (0-2); EOSINOPHILS ABSOLUTE AUTO 0.13 K/mm3 (0.00-0.68); EOSINOPHILS PERCENT AUTO 2 % (0-6); Hematocrit 37.3 % (33.0-51.0); Hemoglobin 12.5 g/dL (11.5-16.0); IMMATURE GRAN ABSOLUTE AUTO 0.04 K/mm3 (0.00-0.10); IMMATURE GRAN PERCENT AUTO 1 % (0-1); LYMPHOCYTES ABSOLUTE AUTO 1.07 K/mm3 (0.84-5.20); LYMPHOCYTES PERCENT AUTO 14 % (21-46); MONOCYTES ABSOLUTE AUTO 0.76 K/mm3 (0.16-1.47); MONOCYTES PERCENT AUTO 10 % (4-13); Mean Corpuscular HGB 30.3 pg (26.0-34.0); Mean Corpuscular HGB Conc 33.5 g/dL (31.5-36.5); Mean Corpuscular Volume 91 fL (80-100); Mean Platelet Volume 9.1 fL (9.1-12.4); NEUTROPHILS PERCENT AUTO 73 % (41-73); Platelet Count 486 K/mm3 (150-400); RDW Coefficient Variation 13.3 % (11.7-14.2); Red Blood Cell Count 4.12 M/mm3 (3.80-5.20); White Blood Cell Count 7.54 K/mm3 (4.00-11.30)
[2023-06-02 09:26] VITALS: BP 156/96
[2023-06-02] MEDS ORDERED: AMLO10 PO (13:56)
[2023-06-02] MEDS ORDERED: IRBESARTAN300 M1 PO (13:57)
--- NOTE | 2023-06-02 15:52 | NUR ---
PT AOX4 AND COOPERATIVE OF ALL CARE. PT HAD ALL PAPERWORK REVIEWED AND EDUCATIONAL MATERIAL SENT WITH HER. NO DISTRESS NOTED. PT UP AND AMBULTING. PT ESCORTED OUT VIA WHEEL CHAIR WITH DAUGHTER TO TRANSPORT.
== END 2023-06-02 14:44 | disposition home health service (06) | DRG 71 ==
LOC: ER 09:54 → MEDS 17:42 → ICUE 17:42 → MEDS 05-31 17:43
PROVIDERS: Family Medicine; Internal Medicine; Nurse Practitioner Acute Care; Student in an Organized Health Care Education/Training Program; ADMIT Student in an Organized Health Care Education/Training Program
PROC: 00JU3ZZ Inspection of Spinal Canal, Percutaneous Approach (ICD-10-PCS; principal; 2023-05-28)
DX: I67.83 Posterior reversible encephalopathy syndrome (principal); I67.4 Hypertensive encephalopathy; I82.611 Acute embolism and thrombosis of superficial veins of right upper extremity; I10 Essential (primary) hypertension; K21.9 Gastro-esophageal reflux disease without esophagitis; F32.A Depression, unspecified; D75.839 Thrombocytosis, unspecified; G47.00 Insomnia, unspecified; K52.9 Noninfective gastroenteritis and colitis, unspecified; Z90.49 Acquired absence of other specified parts of digestive tract; Z93.2 Ileostomy status; Z88.0 Allergy status to penicillin; Z88.1 Allergy status to other antibiotic agents; Z88.8 Allergy status to other drugs, medicaments and biological substances; Z88.2 Allergy status to sulfonamides; Z87.891 Personal history of nicotine dependence; Z96.651 Presence of right artificial knee joint; Z11.52 Encounter for screening for COVID-19; Z79.82 Long term (current) use of aspirin
CPT/HCPCS: 0241U; 36415; 51798; 62270; 70450; 70551; 71045; 74177; 80048; 80053; 80076; 81001; 82140; 82803; 82947; 83605; 83690; 83735; 84145; 85025; 87040; 87086; 93005; 93010; 93971; 94762; 96365-59; 96366-59; 96375-59; 96376-59; 99285-25; A9270; C1751; J0360; J1953; J2060; J2405; J2765; J3010; J3480; J7030; J7050; Q9967